=== PATIENT | female | born 1985 | race African-American/Black ===

== ENCOUNTER 2017-11-17 21:02 | Emergency (ER) | payer MEDICARE, MEDICAID ==
[~2017-11-17] VITALS: Ht 175.3 cm; Wt 81.6 kg
[~2017-11-17 21:02] MED LIST: ACYC1CAP23 PO
[2017-11-17 21:38] LABS: INR 0.98 (0.9-1.15); Partial Thromboplastin Time 24.2 sec (22.64-33.71); Prothrombin Time 10.7 sec (9.37-12.3)
[2017-11-17 21:50] LABS: Basophils # (auto) 0.1 uL; Eosinophils # (auto) 0.3 uL; Hemoglobin 9.7 g/dL (12.2-16.2); Lymphocytes # (auto) 1.7 uL; Monocytes # (auto) 0.3 uL; Nucleated Red Blood Cells % 0.1 %
[2017-11-17 21:52] LABS: Basophils % (auto) 1.3 % (0.0-2.0); Eosinophils % (auto) 4.7 % (0.0-7.0); Hematocrit 32.2 % (36.0-46.0); Lymphocytes % (auto) 23.1 % (10.0-50.0); Mean Corpuscular Hemoglobin 20.7 pg (28.0-32.0); Mean Corpuscular Hgb Conc. 30.1 g/dL (32.0-36.0); Mean Corpuscular Volume 68.6 fL (80.0-100.0); Monocytes % (auto) 4.5 % (0.0-12.0); Neutrophils # (auto) 4.9 uL; Neutrophils % (auto) 66.4 % (37.0-80.0); Platelet Count (auto) 430 10^3/uL (140-450); Red Blood Cells 4.69 10^6/uL (4.0-5.20); White Blood Cell 7.3 10^3/uL (4.4-10.8)
[2017-11-17 22:38] LABS: Albumin 3.9 g/dL (3.4-5.0); BUN/Creatinine Ratio 10.6; Bilirubin, Total 0.3 mg/dL (0.2-1.0); Calcium 8.6 mg/dL (8.5-10.1); Potassium 3.4 mmol/L (3.5-5.1); Total Protein 7.7 g/dL (6.4-8.2)
[2017-11-17] MEDS ORDERED: fentaNYL CITRATE 100 MCG/2 ML VL IV ONE (23:15)
[2017-11-17] MEDS ORDERED: KETOROLAC TROMETH 30 MG/ML 1ML VIAL IV ONE (23:15)
[2017-11-18] VITALS: BP 135/71
== END 2017-11-18 02:30 | disposition home or self-care (01) ==
LOC: EDBD 21:02 → ER 21:08
DX: S02.40DA Maxillary fracture, left side, initial encounter for closed fracture (principal); V43.62XA Car passenger injured in collision with other type car in traffic accident, initial encounter; Y93.89 Activity, other specified; Y99.8 Other external cause status; Y92.410 Unspecified street and highway as the place of occurrence of the external cause
CPT/HCPCS: 36415; 70450; 70486; 71045; 72125; 80053; 80320; 83735; 85025; 85610; 85730; 93005; 96374; 96375; 99285; J1885; J3010

== ENCOUNTER 2018-07-12 20:11 | Emergency (ER) | payer MEDICARE, MEDICAID ==
[~2018-07-12] VITALS: Ht 172.7 cm; Wt 86.2 kg
[2018-07-12 21:52] VITALS: BP 126/100
== END 2018-07-12 22:08 | disposition home or self-care (01) ==
LOC: ER 20:11
DX: B86 Scabies (principal)

== ENCOUNTER 2018-08-21 16:02 | Emergency (ER) | payer MEDICARE, OTHER ==
[~2018-08-21] VITALS: Ht 172.7 cm; Wt 88.5 kg
[2018-08-21 16:10] VITALS: BP 124/74
== END 2018-08-21 17:50 | disposition home or self-care (01) ==
LOC: ER 16:03
DX: Z20.7 Contact with and (suspected) exposure to pediculosis, acariasis and other infestations (principal)

== ENCOUNTER 2018-12-13 23:01 | Emergency (ER) | payer MEDICARE, OTHER ==
[~2018-12-13] VITALS: Ht 172.7 cm; Wt 86.2 kg
[2018-12-13 23:41] VITALS: BP 165/101
== END 2018-12-14 03:13 | disposition home or self-care (01) ==
LOC: ER 23:01
DX: B86 Scabies (principal); Z79.899 Other long term (current) drug therapy

== ENCOUNTER 2019-03-24 20:40 | Emergency (ER) | payer MEDICARE, MEDICAID | END 2019-03-24 21:43 | disposition left against medical advice (07) | LOC: ER 20:43 | DX: R10.9 Unspecified abdominal pain (principal); Z53.21 Procedure and treatment not carried out due to patient leaving prior to being seen by health care provider ==